=== PATIENT | female | born 1985 | race African-American/Black ===

== ENCOUNTER 2024-05-13 14:29 | Emergency (ER) | payer MEDICAID, OTHER ==
[~2024-05-13] VITALS: Ht 160 cm; Wt 37.0 kg
[2024-05-13 14:55] VITALS: TEMP 98.5
[2024-05-13 17:00] VITALS: BP 100/66; PULSE 66; RESP 18; O2SAT 100
[2024-05-13 17:10] LABS: BASOPHILS % (AUTO) 0.3 % (0.0-2.0); EOSINOPHILS % (AUTO) 0.1 % (1.0-6.0); HEMATOCRIT 27.6 % (36-46); HEMOGLOBIN 8.3 g/dL (12.0-16.0); LYMPHOCYTES # (AUTO) 1.4 K/uL (1.0-4.8); MEAN CORPUSCULAR HEMOGLOBIN 21.7 pg (26.0-34.0); MEAN CORPUSCULAR HGB CONC 30.1 G/dL (31.0-37.0); MEAN CORPUSCULAR VOLUME 72 fL (80-100); MONOCYTES # (AUTO) 1.4 K/uL (0.1-1.0); MONOCYTES % (AUTO) 11.2 % (2.0-9.0); NEUTROPHILS # (AUTO) 9.5 K/uL (1.8-7.7); NEUTROPHILS % (AUTO) 77.4 % (40.0-70.0); PLATELET COUNT (AUTO) 401 K/uL (150-450); RED BLOOD CELL COUNT(AUTO) 3.82 MIL/uL (4.00-5.20); RED CELL DISTRIBUTION WIDTH 21.7 % (11.5-14.5); WHITE BLOOD COUNT (AUTO) 12.3 K/uL (4.5-11.0)
[2024-05-13] MEDS: SODIUM CHLORIDE 0.9% 2,000 ML IV ONE (17:10)
[2024-05-13] MEDS: ONDANSETRON HCL 4 MG/2 ML VIAL IVP ONE (17:11)
[2024-05-13] MEDS: KETOROLAC TROMETHAMINE 30 MG/ML VIAL IVP ONE (17:11)
[2024-05-13] MEDS: ACETAMINOPHEN 500 MG TABLET PO ONE (17:12)
[2024-05-13] MEDS: DIPHENOXYLATE/ATROP 2.5-0.025 MG TABLET PO ONE (17:12)
[2024-05-13 17:17] LABS: ANION GAP 6 mmol/L (8-16); CALCIUM, TOTAL 9.4 mg/dL (8.8-10.5); CARBON DIOXIDE 32 mmol/L (22-29); CHLORIDE 100 mmol/L (98-107); CREATININE 0.76 mg/dL (0.60-1.30); GLOMERULAR FILTR. RATE CALC > 60 mL/min (>60); GLUCOSE,RANDOM 111 mg/dL (70-110); POTASSIUM 3.4 mmol/L (3.5-5.1); SODIUM SERUM 138 mmol/L (136-145); UREA NITROGEN, BLOOD 6 mg/dL (7-18)
[2024-05-13 17:18] LABS: LIPASE 22 U/L (16-77)
[2024-05-13 17:30] LABS: LACTIC ACID 2.1 mmol/L (0.4-2.0)
[2024-05-13 17:32] LABS: RBC MORPHOLOGY COMMENT ABNORMAL RBC MORPH
[2024-05-13] MEDS ORDERED: ACET-2247 PO (18:25)
[2024-05-13] MEDS ORDERED: ONDA-104 PO (18:25)
[2024-05-13] MEDS ORDERED: DIPH-1130 PO (18:25)
== END 2024-05-13 18:58 | disposition home or self-care (01) ==
LOC: EMS 14:29
DX: K52.9 Noninfective gastroenteritis and colitis, unspecified (principal)
CPT/HCPCS: 99284; 96374; 96361; 96375; 80048; 83605; 83690; 84703; 85025; 36415; J1885; J2405; J7030